=== PATIENT | female | born 1980 | race Two or more races ===

== ENCOUNTER 2017-04-29 23:31 | Emergency (ER) | payer MEDICAID ==
[~2017-04-29] VITALS: Ht 152.4 cm; Wt 61.2 kg
[2017-04-30] MEDS ORDERED: Mylanta II UD 30ml ORAL ONE
[2017-04-30 00:32] LABS: BASOPHILS % (AUTO) 0.8 % (0.0-2.0); EOSINOPHILS % (AUTO) 2.1 % (0.0-3.0); LYMPHOCYTES % (AUTO) 34.5 % (20.0-45.0); MEAN CORPUSCULAR HEMOGLOBIN 32.3 PG (27.0-31.0); MEAN CORPUSCULAR HGB CONC 34.9 G/DL (32.0-36.0); MEAN CORPUSCULAR VOLUME 93 FL (80-99); MEAN PLATELET VOLUME 8.9 FL (6.5-10.1); MONOCYTES % (AUTO) 8.4 % (1.0-10.0); NEUTROPHILS % (AUTO) 54.2 % (45.0-75.0); PLATELET COUNT 215 K/UL (150-450); RED BLOOD COUNT 4.56 M/UL (4.20-5.40); RED CELL DISTRIBUTION WIDTH 10.9 % (11.6-14.8); WHITE BLOOD COUNT 8.7 K/UL (4.8-10.8)
[2017-04-30 00:33] LABS: APPEARANCE,URINE CLEAR; KETONES,URINE NEGATIVE (NEGATIVE); LEUKOCYTE ESTERASE ,URINE 1+ (NEGATIVE); NITRITE,URINE NEGATIVE (NEGATIVE); PH,URINE 5 (4.5-8.0); PROTEIN,URINE NEGATIVE (NEGATIVE); UROBILINOGEN,URINE NORMAL MG/DL (0.0-1.0)
[2017-04-30 00:42] LABS: WBC,URINE 0-2 /HPF (0 - 2)
[2017-04-30 00:43] LABS: BACTERIA,URINE FEW /HPF; CALCIUM OXALATE CRYSTALS,UR MANY /LPF; SQUAMOUS EPITHELIAL CELL,UR MODERATE /LPF (NONE/OCC)
[2017-04-30 00:49] LABS: ALBUMIN/GLOBULIN RATIO 1.5 (1.0-2.7); ANION GAP 12 (5-15); CALCIUM 9.2 mg/dL (8.6-10.2); CARBON DIOXIDE 27 mEQ/L (20-30); CHLORIDE 99 mEQ/L (98-107); CREATININE 0.7 mg/dL (0.5-0.9); GLOMERULAR FILTRATION RATE > 60 mL/min (>60); HEMOLYSIS 24; LIPASE 31 U/L (< 60); POTASSIUM 3.8 mEQ/L (3.4-4.9); SODIUM 138 mEQ/L (135-145); TOTAL PROTEIN 7.5 g/dL (6.6-8.7)
[2017-04-30 01:00] LABS: ALANINE AMINOTRANSFERASE 5 U/L (3-33); ASPARTATE AMINO TRANSFERASE < 5 U/L (5-40)
--- NOTE | 2017-04-30 01:10 | Emergency Room Report ---
History of Present Illness General Chief Complaint: Abdominal Pain Source: Patient Present Illness HPI Is a 36-year-old female with no past medical history. She presents with lower abdominal pain for a week. No dysuria frequency. No hematuria. Pain is crampy in nature. No radiation. No nausea or vomiting Allergies: Coded Allergies: No Known Allergies (Unverified , 04/29/17) Patient History Past Medical History: see triage record, old chart reviewed Past Surgical History: none Pertinent Family History: none Social History: Denies: smoking Last Menstrual Period: April 08 Now: No Immunizations: other Reviewed Nursing Documentation: PMH: Agreed, PSxH: Agreed Nursing Documentation-PMH Past Medical History: No Stated History Review of Systems Eye: Denies: blurred vision, eye pain ENT: Denies: ear pain, nose congestion, throat swelling Respiratory: Denies: cough, shortness of breath Cardiovascular: Denies: chest pain, palpitations Gastrointestinal: Reports: abdominal pain, Denies: diarrhea, nausea, vomiting Musculoskeletal: Denies: back pain, joint pain Skin: Denies: rash Neurological: Denies: headache, numbness Endocrine: Denies: increased thirst, increased urine Hematologic/Lymphatic: Denies: easy bruising All Other Systems: negative except mentioned in HPI Physical Exam Vital Signs Date Time Temp Pulse Resp B/P Pulse Ox O2 Delivery O2 Flow Rate FiO2 04/29/17 23:38 98.2 69 14 145/87 100 Room Air vitals unremarkable Sp02 EP Interpretation: reviewed, normal General Appearance: well appearing, no apparent distress, alert Head: normocephalic, atraumatic Eyes: bilateral eye EOMI, bilateral eye PERRL ENT: hearing grossly normal, normal pharynx Neck: full range of motion, supple, no meningismus Respiratory: chest non-tender, lungs clear, normal breath sounds Cardiovascular #1: regular rate, rhythm, no murmur Gastrointestinal: normal bowel sounds, no mass, no organomegaly, no bruit, non- distended, tenderness - Mild lower quadrant tenderness Musculoskeletal: back normal, gait/station normal, normal range of motion Psychiatric: mood/affect normal Skin: warm/dry Medical Decision Making Last Vital Signs Date Time Temp Pulse Resp B/P Pulse Ox O2 Delivery O2 Flow Rate FiO2 04/29/17 23:38 98.2 69 14 145/87 100 Room Air Referrals: NOT CHOSEN IPA/MD,REFERRING (PCP) RADHIKA CHAMBERS M.D. Apr 30, 2017 01:10
[2017-04-30] MEDS ORDERED: IBUPROFEN600 MG ORAL (01:12)
[2017-04-30 01:14] VITALS: BP 133/87
== END 2017-04-30 01:14 | disposition home or self-care (01) ==
LOC: EMR 23:55
DX: R10.30 Lower abdominal pain, unspecified (principal)
CPT/HCPCS: 36415; 80053; 81003; 81025; 83690; 85025; 96374; 96375; 99284; J2405

== ENCOUNTER 2018-02-05 11:32 | Emergency (ER) | payer MEDICAID ==
[~2018-02-05] VITALS: Ht 160 cm; Wt 63.0 kg
[~2018-02-05 11:32] MED LIST: IBUPROFEN600 MG ORAL
[2018-02-05] MEDS ORDERED: NKM (11:50)
[2018-02-05 11:51] VITALS: BP 124/84
[2018-02-05] MEDS ORDERED: Ketorolac 60mg Inj IM ONE (12:15)
--- NOTE | 2018-02-05 12:39 | Emergency Room Report ---
History of Present Illness General Chief Complaint: Skin Rash/Abscess Source: Patient Present Illness HPI 5/10 in severity abdominal pain to the right side right upper quadrant radiating towards the back flank for over a week. pt. States that she feels swelling in the right upper abdomen area. She denies nausea, vomiting, fevers or chills she reports previous urinary frequency she denies dysuria, hematuria or urgency. She denies . Denies CP, Palpitations, LOC, AMS, dizziness , Changes in Vision, Sensation, paresthesias, or a sudden severe headache. Allergies: Coded Allergies: No Known Allergies (Unverified , 04/29/17) Patient History Past Medical History: see triage record Past Surgical History: none Pertinent Family History: none Now: No Reviewed Nursing Documentation: PMH: Agreed; PSxH: Agreed Nursing Documentation-PMH Past Medical History: No Stated History Review of Systems All Other Systems: negative except mentioned in HPI Physical Exam Vital Signs Date Time Temp Pulse Resp B/P (MAP) Pulse Ox O2 Delivery O2 Flow Rate FiO2 02/05/18 11:41 98.4 74 18 119/76 95 Room Air 98.4 Medical Decision Making PA Attestation Dr. Kiran is my supervising Physician whom patient management has been discussed with. Diagnostic Impression: Primary Impression: Right ovarian cyst Additional Impression: Abdominal pain Qualified Codes: R10.11 - Right upper quadrant pain ER Course 5/10 in severity abdominal pain to the right side right upper quadrant radiating towards the back flank for over a week. pt. States that she feels swelling in the right upper abdomen area. She denies nausea, vomiting, fevers or chills she reports previous urinary frequency she denies dysuria, hematuria or urgency. She denies . Denies CP, Palpitations, LOC, AMS, dizziness , Changes in Vision, Sensation, paresthesias, or a sudden severe headache. Ddx considered but are not limited to Diverticulitis, acute appy, diarrhea,UC, PUD, GE, pancreatitis, gallstone Vital signs: are WNL, pt. is afebrile H&PE are most consistent with Hypovolemia and diarrhea ORDERS: CBC, CMP, lipase, UA -Abdominal US: "unremarkable no gallstones, no hydro " -Per official radiology report- Please see report for specific details. ED INTERVENTIONS: - - Toradol IM DISCHARGE: At this time pt. is stable for d/c to home. Will provide printed patient care instructions, and any necessary prescriptions. Care plan and follow up instructions have been discussed with the patient prior to discharge. Labs Test 02/05/18 12:30 White Blood Count 9.7 K/UL (4.8-10.8) Red Blood Count 4.45 M/UL (4.20-5.40) Hemoglobin 13.8 G/DL (12.0-16.0) Hematocrit 40.7 % (37.0-47.0) Mean Corpuscular Volume 91 FL (80-99) Mean Corpuscular Hemoglobin 31.1 PG (27.0-31.0) Mean Corpuscular Hemoglobin Concent 34.0 G/DL (32.0-36.0) Red Cell Distribution Width 11.2 % (11.6-14.8) Platelet Count 243 K/UL (150-450) Mean Platelet Volume 9.4 FL (6.5-10.1) Neutrophils (%) (Auto) 65.8 % (45.0-75.0) Lymphocytes (%) (Auto) 23.8 % (20.0-45.0) Monocytes (%) (Auto) 8.4 % (1.0-10.0) Eosinophils (%) (Auto) 1.1 % (0.0-3.0) Basophils (%) (Auto) 0.9 % (0.0-2.0) Urine Color Pale yellow Urine Appearance Slightly cloudy Urine pH 6.5 (4.5-8.0) Urine Specific [place] 1.020 (1.005-1.035) Urine Protein Negative (NEGATIVE) Urine Glucose (UA) Negative (NEGATIVE) Urine Ketones Negative (NEGATIVE) Urine Occult Blood 2+ (NEGATIVE) Urine Nitrite Negative (NEGATIVE) Urine Bilirubin Negative (NEGATIVE) Urine Urobilinogen Normal MG/DL (0.0-1.0) Urine Leukocyte Esterase 1+ (NEGATIVE) Urine RBC 2-4 /HPF (0 - 2) Urine WBC 2-4 /HPF (0 - 2) Urine Squamous Epithelial Cells Moderate /LPF (NONE/OCC) Urine Amorphous Sediment Few /LPF (NONE) Urine Bacteria Few /HPF (NONE) Urine HCG, Qualitative Negative (NEGATIVE) Sodium Level 140 MMOL/L (136-145) Potassium Level 3.7 MMOL/L (3.5-5.1) Chloride Level 103 MMOL/L (98-107) Carbon Dioxide Level 32 MMOL/L (21-32) Anion Gap 5 mmol/L (5-15) Blood Urea Nitrogen 13 mg/dL (7-18) Creatinine 0.8 MG/DL (0.55-1.30) Estimat Glomerular Filtration Rate > 60 mL/min (>60) Glucose Level 98 MG/DL (74-106) Calcium Level 9.1 MG/DL (8.5-10.1) Total Bilirubin 0.3 MG/DL (0.2-1.0) Aspartate Amino Transf (AST/SGOT) 16 U/L (15-37) Alanine Aminotransferase (ALT/SGPT) 48 U/L (12-78) Alkaline Phosphatase 84 U/L (46-116) Total Protein 8.0 G/DL (6.4-8.2) Albumin 4.2 G/DL (3.4-5.0) Globulin 3.8 g/dL Albumin/Globulin Ratio 1.1 (1.0-2.7) Lipase 112 U/L (73-393) CT/MRI/US Diagnostic Results CT/MRI/US Diagnostic Results : Impression " 2.2 cm right ovarian follicular cyst normal color and Doppler flow to the right ovary appendix not visualized, contracted gallbladder, negative sonographic Yarbrough sign, questionable mild hepatic steatosis no evidence of hydronephrosis or sonographically appreciable renal stone."Per official radiology report- Please see report for specific details. Last Vital Signs Date Time Temp Pulse Resp B/P (MAP) Pulse Ox O2 Delivery O2 Flow Rate FiO2 02/05/18 11:41 98.4 74 18 119/76 95 Room Air 98.4 Disposition: HOME, SELF-CARE Condition: Stable Scripts Ibuprofen* (MOTRIN*) 600 Mg Tablet 600 MG ORAL THREE TIMES A DAY, #20 TAB 0 Refills Prov: Elle Henderson 02/05/18 Referrals: NOT CHOSEN IPA/,REFERRING (PCP) Patient Instructions: Abdominal Pain, Adult, [id number], Ovarian Cyst Additional Instructions: Take medications as directed. Follow up with a Primary Care Provider in 3-5 days, even if your symptoms have resolved. --Please review list of primary care clinics, if you do not already have a primary care provider Return sooner to ED if new symptoms occur, or current symptoms become worse. Do not drink alcohol, drive, or operate heavy machinery while taking [place] as this may cause drowsiness. - Please note that this Emergency Department Report was dictated using [employer] pou[employer] technology software, occasionally this can lead to erroneous entry secondary to interpretation by the dictation equipment. Elle Henderson February 05, 2018 12:39
[2018-02-05 13:09] LABS: BASOPHILS % (AUTO) 0.9 % (0.0-2.0); EOSINOPHILS % (AUTO) 1.1 % (0.0-3.0); HEMATOCRIT 40.7 % (37.0-47.0); HEMOGLOBIN 13.8 G/DL (12.0-16.0); LYMPHOCYTES % (AUTO) 23.8 % (20.0-45.0); MEAN CORPUSCULAR VOLUME 91 FL (80-99); MONOCYTES % (AUTO) 8.4 % (1.0-10.0); NEUTROPHILS % (AUTO) 65.8 % (45.0-75.0); PLATELET COUNT 243 K/UL (150-450); RED BLOOD COUNT 4.45 M/UL (4.20-5.40); RED CELL DISTRIBUTION WIDTH 11.2 % (11.6-14.8); WHITE BLOOD COUNT 9.7 K/UL (4.8-10.8)
[2018-02-05 13:18] LABS: APPEARANCE,URINE SLIGHTLY CLOUDY; BILIRUBIN, URINE NEGATIVE (NEGATIVE); COLOR,URINE PALE YELLOW; GLUCOSE, URINE (UA) NEGATIVE (NEGATIVE); KETONES,URINE NEGATIVE (NEGATIVE); LEUKOCYTE ESTERASE ,URINE 1+ (NEGATIVE); NITRITE,URINE NEGATIVE (NEGATIVE); PH,URINE 6.5 (4.5-8.0); PROTEIN,URINE NEGATIVE (NEGATIVE); UROBILINOGEN,URINE NORMAL MG/DL (0.0-1.0)
[2018-02-05 13:22] LABS: ANION GAP 5 mmol/L (5-15); BLOOD UREA NITROGEN 13 mg/dL (7-18); CALCIUM 9.1 MG/DL (8.5-10.1); CARBON DIOXIDE 32 MMOL/L (21-32); CHLORIDE 103 MMOL/L (98-107); CREATININE 0.8 MG/DL (0.55-1.30); POTASSIUM 3.7 MMOL/L (3.5-5.1); SODIUM 140 MMOL/L (136-145)
[2018-02-05 13:27] LABS: ALANINE AMINOTRANSFERASE 48 U/L (12-78); ALBUMIN 4.2 G/DL (3.4-5.0); ALBUMIN/GLOBULIN RATIO 1.1 (1.0-2.7); ALKALINE PHOSPHATASE 84 U/L (46-116); ASPARTATE AMINO TRANSFERASE 16 U/L (15-37); BILIRUBIN,TOTAL 0.3 MG/DL (0.2-1.0)
[2018-02-05 14:25] VITALS: BP 127/84
--- NOTE | 2018-02-05 14:58 | Diagnostic Imaging Report ---
Indication: Abdominal pain Technique: US ABD Complete Comparison: None Findings: Imaged portions of the pancreatic head are unremarkable in appearance. The body and tail not seen. Liver is normal in size with the right lobe measuring approximately 14 cm in length. Hepatic contour is smooth. There is question of mild increased hepatic echogenicity. No focal hepatic mass lesion is appreciated sonographically. There is no intrahepatic biliary ductal dilatation. The gallbladder is contracted, limiting its evaluation. It is grossly unremarkable. No definite cholelithiasis seen. No pericholecystic fluid. Common bile duct measures 4.3 mm. Kidneys are symmetric in size. They demonstrate normal echogenicity. There is no hydronephrosis or sonographically appreciable renal stone. Bladder is unremarkable in appearance. Ureteral jets are visualized. Spleen is normal in size and appearance. Portions of the aorta and IVC are normal in caliber. There is no appreciable ascites. Right lower quadrant focus scanning was performed demonstrating a 2.2 cm follicular cyst in the right ovary. Color and Doppler flow to the right ovary is documented. Appendix is not visualized. IMPRESSION: 2.2 cm right ovarian follicular cyst noted upon focus scanning in the right lower quadrant. Color and Doppler flow to the right ovary noted. Appendix not visualized Contracted gallbladder, likely related to nonfasting state. The bladder otherwise unremarkable in appearance. Sonographic Yarbrough's negative. Question mild hepatic steatosis. No evidence of hydronephrosis or sonographically appreciable renal stone.
[2018-02-05] MEDS ORDERED: IBUPROFEN600 MG ORAL (15:13)
[2018-02-05 15:46] VITALS: BP 128/82
== END 2018-02-05 15:50 | disposition home or self-care (01) ==
LOC: EMR 12:27
DX: N83.201 Unspecified ovarian cyst, right side (principal); R10.11 Right upper quadrant pain
CPT/HCPCS: 36415; 76700; 80053; 81003; 81025; 83690; 85025; 96372; 99284

== ENCOUNTER 2018-09-02 19:38 | Emergency (ER) | payer MEDICAID ==
[~2018-09-02] VITALS: Ht 147.3 cm; Wt 58.5 kg
[~2018-09-02 19:38] MED LIST changes: +NKM
[2018-09-02 20:01] VITALS: BP 123/76
--- NOTE | 2018-09-02 20:18 | Emergency Room Report ---
History of Present Illness General Chief Complaint: Back Pain-No Injury Source: Patient (Thalia Pike) Present Illness HPI 38-year-old female with no significant past medical history here complaining of 3 weeks of pain in the right upper back radiating to the right side of her body. Denies fall or injury. Reports laying down on her right side being on her phone multiple hours a day she further complains of pain in her joints in her fingers. She has brought up this pain into her primary care provider primary care provider has given her ibuprofen and also with muscle strain. She is rating the pain intermittent 5 out of 10 without radiation and without tingling or numbness. She is also concerned that her liver is in the shape however she is planning to have back and side and she is pointing to her liver. Normal pain, denies nausea vomiting, diarrhea, fevers chills, chest pain, SOB , palpitations, dysuria, hematuria, urinary frequency. She has taken ibuprofen for pain with minimal relief. She is right handed and uses her right side of body for many strenuous physical activity (Thalia Pike) Allergies: Coded Allergies: No Known Allergies (Unverified , 04/29/17) Patient History Past Medical History: see triage record Past Surgical History: none Pertinent Family History: none Last Menstrual Period: jul Now: No Immunizations: UTD Reviewed Nursing Documentation: PMH: Agreed; PSxH: Agreed (Thalia Pike) Nursing Documentation-PMH Past Medical History: No Stated History (Thalia Pike) Review of Systems All Other Systems: negative except mentioned in HPI (Thalia Pike) Physical Exam Vital Signs Date Time Temp Pulse Resp B/P (MAP) Pulse Ox O2 Delivery O2 Flow Rate FiO2 09/02/18 19:48 97.9 64 16 123/76 96 Room Air Sp02 EP Interpretation: reviewed, normal General Appearance: normal inspection, well appearing, no apparent distress, alert Head: normocephalic, atraumatic Eyes: bilateral eye normal inspection, bilateral eye PERRL ENT: normal ENT inspection, normal pharynx, no angioedema Neck: normal inspection, full range of motion, supple Respiratory: normal inspection, chest non-tender, lungs clear, normal breath sounds, no rhonchi, no respiratory distress, no wheezing Cardiovascular #1: normal inspection, regular rate, rhythm, no edema, no gallop , no murmur Gastrointestinal: normal bowel sounds, non tender, soft, no mass, no organomegaly, no guarding, no rebound Rectal: deferred Genitourinary: no CVA tenderness Musculoskeletal: digits/nails normal, gait/station normal, non-tender, other - spasm of the right upper back Neurologic: normal inspection, alert, oriented x3, responsive, handbag operator III-XII nml as tested Psychiatric: normal inspection, judgement/insight normal, memory normal Skin: normal inspection, normal color, no rash, warm/dry Lymphatic: normal inspection, no adenopathy (Thalia Pike) Medical Decision Making PA Attestation diagnosis and treatment plans are reviewed and discussed with my supervising physician Dr. Kiran (Thalia Pike) Diagnostic Impression: Primary Impression: Back spasm Additional Impressions: Muscle strain Joint pain ER Course 38-year-old female with no significant past medical history here complaining of 3 weeks of pain in the right upper back radiating to the right side of her body. Denies fall or injury. Reports laying down on her right side being on her phone multiple hours a day she further complains of pain in her joints in her fingers. She has brought up this pain into her primary care provider primary care provider has given her ibuprofen and also with muscle strain. She is rating the pain intermittent 5 out of 10 without radiation and without tingling or numbness. She is also concerned that her liver is in the shape however she is planning to have back and side and she is pointing to her liver. Normal pain, denies nausea vomiting, diarrhea, fevers chills, chest pain, SOB , palpitations, dysuria, hematuria, urinary frequency. She has taken ibuprofen for pain with minimal relief. She is right handed and uses her right side of body for many strenuous physical activity Ddx considered but are not limited to muscle strain, muscle spasm, neuropathy, arthritis Vital signs: are WNL, pt. is afebrile H&PE are most consistent with muscle spasm, muscle strain, ORDERS: naproxen ED INTERVENTIONS: None required at this time. DISCHARGE: At this time pt. is stable for d/c to home. Will provide printed patient care instructions, and any necessary prescriptions. Care plan and follow up instructions have been discussed with the patient prior to discharge. RICE guidelines given to patient (Thalia Pike) Last Vital Signs Date Time Temp Pulse Resp B/P (MAP) Pulse Ox O2 Delivery O2 Flow Rate FiO2 09/02/18 19:48 97.9 64 16 123/76 96 Room Air (Thalia Pike) Disposition: HOME, SELF-CARE Condition: Stable Scripts Naproxen* (NAPROXEN*) 500 Mg Tablet 500 MG ORAL TWICE A WEEK, #30 TAB 0 Refills Prov: Thalia Pike 09/02/18 Referrals: NON PHYSICIAN (PCP) Patient Instructions: Back Pain, Adult, Joint Pain, [id number], Muscle Strain , [id number] Additional Instructions: follow with the primary care provider, physical therapy and place, no indication for doing general workup of the liver kidneys diabetes cholesterol as primary care should take care of does unless patient is being symptomatic which at this time patient has no symptoms no nausea vomiting no diarrhea no abdominal pain no abnormal vital signs Thalia Pike Sep 02, 2018 20:18 Uche Kiran MD Sep 03, 2018 03:09
[2018-09-02] MEDS ORDERED: NAPROXEN500 M2 ORAL (20:19)
[2018-09-02 20:26] VITALS: BP 118/72
== END 2018-09-02 20:25 | disposition home or self-care (01) ==
LOC: EMR 20:11
DX: M62.830 Muscle spasm of back (principal); M25.50 Pain in unspecified joint; T14.8XXA Other injury of unspecified body region, initial encounter; X58.XXXA Exposure to other specified factors, initial encounter; Y92.9 Unspecified place or not applicable
CPT/HCPCS: 99282

== ENCOUNTER 2018-10-17 20:42 | Emergency (ER) | payer MEDICAID ==
[~2018-10-17] VITALS: Ht 162.6 cm; Wt 55.8 kg
[~2018-10-17 20:42] MED LIST changes: +NAPROXEN500 M2 ORAL
--- NOTE | 2018-10-17 21:13 | NUR ---
ED Nurse Note: pt walked in c/o neck pain and swelling, abd pain and rectal pain x 3 wks, pt reports when she has bm it hurts more after. pt denies diarrhea or constipation, denies blood in bm. pt states she doens't know if she had hemorroids or not. abd soft nondistended active bs, airway intact, resp even and unlabored, will cont monitor.
[2018-10-17] MEDS ORDERED: Bactrim-DS 1 tab ORAL ONE (21:30)
[2018-10-17 21:35] LABS: APPEARANCE,URINE CLEAR; BILIRUBIN, URINE NEGATIVE (NEGATIVE); COLOR,URINE PALE YELLOW; GLUCOSE, URINE (UA) NEGATIVE (NEGATIVE); KETONES,URINE NEGATIVE (NEGATIVE); LEUKOCYTE ESTERASE ,URINE 1+ (NEGATIVE); NITRITE,URINE NEGATIVE (NEGATIVE); PH,URINE 7 (4.5-8.0); PROTEIN,URINE NEGATIVE (NEGATIVE); UROBILINOGEN,URINE NORMAL MG/DL (0.0-1.0)
--- NOTE | 2018-10-17 22:27 | Emergency Room Report ---
History of Present Illness General Chief Complaint: Sore Throat Source: Patient Present Illness HPI Patient presents with 2 problems. One is that she has pain on the outside of her trachea on the left-hand side. There is a bump there. She denies any trauma. She's not noticed any fever. She's tried taking Motrin. This is been present for several days. She has had this problem once before but it resolved on its own. No medications were taken. The second problem is that she has some lower abdominal pain associated with straining with her stools. She denies any vomiting or diarrhea. She states she has pain in her rectum. There is no rash. She rates the pain 9/10 and aching and pressure without radiation. However there is some suprapubic tenderness and fullness. There is no blood in the stool. On amox for pulled tooth. Has 5 more tablets to go. She is never been evaluated for the problem in her neck or abdomen. She denies diabetes, hypertension, abdominal problems in the past. Allergies: Coded Allergies: No Known Allergies (Unverified , 04/29/17) Patient History Past Medical History: see triage record Social History: Denies: smoking Social History Narrative At home Last Menstrual Period: 09/18/18 Now: No : 0 Reviewed Nursing Documentation: PMH: Agreed; PSxH: Agreed Nursing Documentation-PMH Past Medical History: No Stated History Review of Systems All Other Systems: negative except mentioned in HPI Physical Exam Vital Signs Date Time Temp Pulse Resp B/P (MAP) Pulse Ox O2 Delivery O2 Flow Rate FiO2 10/17/18 20:57 98.1 68 17 123/77 98 Room Air Sp02 EP Interpretation: reviewed, normal General Appearance: well appearing, no apparent distress, GCS 15 Head: normocephalic Eyes: bilateral eye normal inspection, bilateral eye PERRL ENT: moist mucus membranes Neck: full range of motion, supple, thyroid normal, tender - Lymph node left anterior Respiratory: lungs clear, normal breath sounds Cardiovascular #1: regular rate, rhythm Cardiovascular #2: 2+ radial (R) Gastrointestinal: normal inspection, normal bowel sounds, soft, no mass, non- distended, no guarding, no rebound, tenderness - Minimal suprapubic and left lower quadrant Genitourinary: no CVA tenderness Musculoskeletal: back normal, gait/station normal, normal range of motion Neurologic: alert, oriented x3, grossly normal Psychiatric: mood/affect normal Skin: normal inspection, warm/dry, other - Moles anterior neck Medical Decision Making Diagnostic Impression: Primary Impression: Lymphadenitis Additional Impressions: Constipated Qualified Codes: K59.00 - Constipation, unspecified Abdominal pain Qualified Codes: R10.30 - Lower abdominal pain, unspecified ER Course Patient presents with 2 problems. She has had painful swelling area in the left anterior neck. Differential includes lymphadenitis, cellulitis, strain amongst others. There is a tender lymph node in that area. This is just lymphadenitis. In addition she complains about abdominal pain. Differential includes diverticulitis, constipation, UTI amongst others. Evaluation will be with urinalysis and x-ray. Urinalysis without evidence of infection. negative. Abdominal films with increased stool load. Patient had been treated here and pain is resolved. She is given Bactrim for the possible lymphadenitis in her neck and advised to stop amoxicillin. Discussed results of x-ray and urinalysis. Patient is improved and stable for outpatient observation and treatment. Patient was advised to return if the pain increased or if she was not doing well. In addition she was told she needed to follow-up with her private physician. Laboratory Tests Test 10/17/18 21:17 Urine Color Pale yellow Urine Appearance Clear Urine pH 7 (4.5-8.0) Urine Specific [place] 1.010 (1.005-1.035) Urine Protein Negative (NEGATIVE) Urine Glucose (UA) Negative (NEGATIVE) Urine Ketones Negative (NEGATIVE) Urine Blood 2+ (NEGATIVE) H Urine Nitrite Negative (NEGATIVE) Urine Bilirubin Negative (NEGATIVE) Urine Urobilinogen Normal MG/DL (0.0-1.0) Urine Leukocyte Esterase 1+ (NEGATIVE) H Urine RBC 2-4 /HPF (0 - 2) H Urine WBC 0-2 /HPF (0 - 2) Urine Squamous Epithelial Cells Few /LPF (NONE/OCC) Urine Bacteria Few /HPF (NONE) Urine HCG, Qualitative Negative (NEGATIVE) Other X-Ray Diagnostic Results Other X-Ray Diagnostic Results : X-Ray ordered: Abdomen # of Views/Limited Vs Complete: 2 View Indication: Pain EP Interpretation: Yes Interpretation: nonspecific bowel gas, no sbo, other - Increased stool load Impression: Other Electronically Signed by: Electronically signed by Uche Kiran MD Last Vital Signs Date Time Temp Pulse Resp B/P (MAP) Pulse Ox O2 Delivery O2 Flow Rate FiO2 10/17/18 23:19 98.2 67 16 116/60 100 Room Air Status: improved Disposition: HOME, SELF-CARE Condition: Improved Scripts Ibuprofen* (MOTRIN*) 600 Mg Tablet 600 MG ORAL Q6H PRN for For Pain, #20 TAB Prov: Uche Kiran MD 10/17/18 Lactulose (LACTULOSE*) 20 Gm/30 Ml Solution 30 ML ORAL BID, #240 ML 0 Refills Prov: Uche Kiran MD 10/17/18 Acetaminophen (Tylenol) 325 Mg Tablet 650 MG ORAL Q6H PRN for Prn Pain/Headache/Temp > 101, #20 TAB 0 Refills Prov: Uche Kiran MD 10/17/18 Trimethoprim/Sulfamethoxazole 160/800* (BACTRIM DS TABLET*) 1 Each Tablet 1 TAB ORAL TWICE A DAY, #14 TAB Prov: Uche Kiran MD 10/17/18 Uche Kiran MD Oct 17, 2018 22:27
[2018-10-17 22:51] VITALS: BP 118/77
[2018-10-17] MEDS ORDERED: BACTRIM DS TAB1 EAC1 ORAL (23:17)
[2018-10-17] MEDS ORDERED: LACTULOSE20 GM/301 ORAL (23:17)
[2018-10-17] MEDS ORDERED: TYLENOL325 MG ORAL (23:17)
[2018-10-17 23:19] VITALS: BP 116/60
[2018-10-17] MEDS ORDERED: IBUPROFEN600 MG ORAL (23:19)
--- NOTE | 2018-10-17 23:19 | NUR ---
ED Nurse Note: pt discharge instruction provided w/ prescription, pt education done via discussion and hand out, wristband removed, pt advised to follow up with pcp or return to ed if s/s worsen or new s/s develop, pt verbalized understanding and agrees with plan.
--- NOTE | 2018-10-18 11:09 | Diagnostic Imaging Report ---
Indication: Abdominal pain Technique: Supine view of the abdomen Comparison: none Findings: Unremarkable bowel gas pattern. No unusual masses or calcifications. The bones are unremarkable Impression: Negative
[2018-10-23] MEDS ORDERED: IBUPROFEN600 MG ORAL (01:42)
[2018-10-25] MEDS ORDERED: NITROFURANTOIN100 M2 ORAL (13:52)
== END 2018-10-17 23:19 | disposition home or self-care (01) ==
LOC: EMR 21:30
DX: I88.9 Nonspecific lymphadenitis, unspecified (principal); K59.00 Constipation, unspecified; R10.30 Lower abdominal pain, unspecified
CPT/HCPCS: 74018; 81003; 81025; 99283

== ENCOUNTER 2018-10-27 20:20 | Emergency (ER) | payer MEDICAID ==
[~2018-10-27] VITALS: Ht 157.5 cm; Wt 55.8 kg
[~2018-10-27 20:20] MED LIST changes: +BACTRIM DS TAB1 EAC1 ORAL; +LACTULOSE20 GM/301 ORAL; +NITROFURANTOIN100 M2 ORAL; +TYLENOL325 MG ORAL
[2018-10-27] MEDS ORDERED: AMOXICILLIN500 M1 PO (20:34)
[2018-10-27 20:35] VITALS: BP 140/85
--- NOTE | 2018-10-27 20:35 | NUR ---
ED Nurse Note: Patient walk in c/o pressure chest pain, left sided weakness, blurry vision since yesterday at 1200. pt stating 5 /10 pain on chest that is niot radiating. seen by juan. will continue to monitor.
[2018-10-27] MEDS ORDERED: BUSPAR10 MG ORAL (21:13)
--- NOTE | 2018-10-27 21:16 | Emergency Room Report ---
History of Present Illness General Chief Complaint: Chest Pain Source: Patient Present Illness HPI This is a 38-year-old female with no past medical history. She presents with chief complaint of chest pain and left-sided numbness. She's been here multiple time for the same thing. Denies any fever chills been ongoing for last 2 days. She does complain of feeling nervous. No nausea no vomiting. No radiation. No focal deficit. Denies any other complaint. Allergies: Coded Allergies: No Known Allergies (Unverified , 04/29/17) Patient History Past Medical History: none, see triage record, old chart reviewed Past Surgical History: none Pertinent Family History: none Social History: Denies: smoking Last Menstrual Period: 09/27/2018 Now: No Immunizations: other Reviewed Nursing Documentation: PMH: Agreed; PSxH: Agreed Nursing Documentation-PMH Past Medical History: No Stated History Review of Systems Eye: Denies: eye pain, blurred vision ENT: Denies: ear pain, nose congestion, throat swelling Respiratory: Denies: cough, shortness of breath Cardiovascular: Reports: chest pain; Denies: palpitations Gastrointestinal: Denies: abdominal pain, diarrhea, nausea, vomiting Musculoskeletal: Denies: back pain, joint pain Skin: Denies: rash Neurological: Denies: headache, numbness Endocrine: Denies: increased thirst, increased urine Hematologic/Lymphatic: Denies: easy bruising All Other Systems: negative except mentioned in HPI Physical Exam Vital Signs Date Time Temp Pulse Resp B/P (MAP) Pulse Ox O2 Delivery O2 Flow Rate FiO2 10/27/18 20:28 97.3 78 16 140/85 98 Room Air vitals normal Sp02 EP Interpretation: reviewed, normal General Appearance: well appearing, no apparent distress, alert Head: normocephalic, atraumatic Eyes: bilateral eye PERRL, bilateral eye EOMI ENT: hearing grossly normal, normal pharynx Neck: full range of motion, supple, no meningismus Respiratory: chest non-tender, lungs clear, normal breath sounds Cardiovascular #1: regular rate, rhythm, no murmur Gastrointestinal: normal bowel sounds, non tender, no mass, no organomegaly, no bruit, non-distended Musculoskeletal: back normal, gait/station normal, normal range of motion Psychiatric: mood/affect normal Skin: warm/dry Medical Decision Making Diagnostic Impression: Primary Impression: Chest pain Qualified Codes: R07.9 - Chest pain, unspecified Additional Impression: Anxiety ER Course Patient presents with atypical chest pain. Most likely anxiety related. No evidence of ACS, PE, dissection to name a few. No evidence of CVA. EKG Diagnostic Results Rate: normal Rhythm: NSR ST Segments: no acute changes ASA given to the pt in ED: No Rhythm Strip Diag. Results EP Interpretation: yes Rate: 61 Rhythm: NSR, no PVC's, no ectopy Last Vital Signs Date Time Temp Pulse Resp B/P (MAP) Pulse Ox O2 Delivery O2 Flow Rate FiO2 10/27/18 20:28 97.3 78 16 140/85 98 Room Air Status: improved Disposition: HOME, SELF-CARE Condition: Stable Scripts Buspirone Hcl* (BUSPAR*) 10 Mg Tablet 10 MG ORAL THREE TIMES A DAY, #15 TAB 0 Refills Prov: Seth Skaggs MD 10/27/18 Patient Instructions: Nonspecific Chest Pain Additional Instructions: Follow up with your Dr. in 7 days. Return if symptom worsen. Seth Skaggs MD Oct 27, 2018 21:16
[2018-10-27 21:39] VITALS: BP 140/85
--- NOTE | 2018-10-27 21:39 | NUR ---
ED Nurse Note: Patient cleared for discharge per ERMD. VSS. Patient given prescriptions and discharge instructions; verbalized understanding. ID band removed. Patient ambulated steady with all personal belongings.
== END 2018-10-27 21:39 | disposition home or self-care (01) ==
LOC: EMR 21:00
DX: R07.89 Other chest pain (principal); F41.9 Anxiety disorder, unspecified
CPT/HCPCS: 93005; 99283

== ENCOUNTER 2018-10-30 20:22 | Emergency (ER) | payer MEDICAID ==
[~2018-10-30] VITALS: Ht 157.5 cm; Wt 55.8 kg
[~2018-10-30 20:22] MED LIST changes: +AMOXICILLIN500 M1 PO; +BUSPAR10 MG ORAL
[2018-10-30] MEDS ORDERED: NKM (20:30)
[2018-10-30 20:32] VITALS: BP 122/72
--- NOTE | 2018-10-30 20:36 | NUR ---
ED Nurse Note: Patient walk in c/o left side chest pain radiating to back for 3x weeks. Patient reports burning sensation. Patient reports 5/10 pain. Patient states her PCP told her she had inflamation in the neck. pt is alert and oriented times 4. pt presents with normal sinus rhythm with other virtal signs within normal limits.
[2018-10-30] MEDS ORDERED: Mylanta II UD 30ml ORAL ONE (21:00)
[2018-10-30] MEDS ORDERED: Lidocaine 2% Visc 15ml soln ORAL ONE (21:00)
[2018-10-30] MEDS ORDERED: PRILOSEC OTC20 MG ORAL (21:01)
--- NOTE | 2018-10-30 21:01 | Emergency Room Report ---
History of Present Illness General Chief Complaint: Chest Pain Source: Patient Present Illness HPI Is a 38-year-old female with no past medical history. She presents with chief complaint of left-sided chest pain. This been a chronic problem for weeks. I saw her several times for this already. She said his skin is burning in sensation. His go up her neck. No nausea no vomiting. No fever or chills. She had workup with negative EKG. Her neck pain and CT done with was negative for any issue. I tried giving her BuSpar without any relief. Denies any other complaint. Nothing made it better. Nothing made it worse. Allergies: Coded Allergies: No Known Allergies (Unverified , 04/29/17) Patient History Past Medical History: see triage record, old chart reviewed Past Surgical History: none Pertinent Family History: none Social History: Denies: smoking Last Menstrual Period: 10/28/2018 Now: No Immunizations: other Reviewed Nursing Documentation: PMH: Agreed; PSxH: Agreed Nursing Documentation-PMH Past Medical History: No Stated History Review of Systems Eye: Denies: eye pain, blurred vision ENT: Denies: ear pain, nose congestion, throat swelling Respiratory: Denies: cough, shortness of breath Cardiovascular: Reports: chest pain; Denies: palpitations Gastrointestinal: Denies: abdominal pain, diarrhea, nausea, vomiting Musculoskeletal: Denies: back pain, joint pain Skin: Denies: rash Neurological: Denies: headache, numbness Endocrine: Denies: increased thirst, increased urine Hematologic/Lymphatic: Denies: easy bruising All Other Systems: negative except mentioned in HPI Physical Exam Vital Signs Date Time Temp Pulse Resp B/P (MAP) Pulse Ox O2 Delivery O2 Flow Rate FiO2 10/30/18 20:25 98.2 76 16 122/72 96 Room Air 10/30/18 20:32 99 vitals normal Sp02 EP Interpretation: reviewed, normal General Appearance: well appearing, no apparent distress, alert Head: normocephalic, atraumatic Eyes: bilateral eye PERRL, bilateral eye EOMI ENT: hearing grossly normal, normal pharynx Neck: full range of motion, supple, no meningismus Respiratory: chest non-tender, lungs clear, normal breath sounds Cardiovascular #1: regular rate, rhythm, no murmur Gastrointestinal: normal bowel sounds, non tender, no mass, no organomegaly, no bruit, non-distended Musculoskeletal: back normal, gait/station normal, normal range of motion Neurologic: alert, oriented x3 Psychiatric: anxious Skin: warm/dry Medical Decision Making Diagnostic Impression: Primary Impression: Chest pain Qualified Codes: R07.9 - Chest pain, unspecified ER Course Patient with atypical chest pain. No cardiac issue. EKG normal. This may be anxiety related. Could be reflux. No acute process or bloodwork or admission. We'll discharge home with reassurance and follow up with primary care doctor. EKG Diagnostic Results Rate: normal Rhythm: NSR ST Segments: no acute changes Rhythm Strip Diag. Results EP Interpretation: yes Rate: 62 Rhythm: NSR, no PVC's, no ectopy Last Vital Signs Date Time Temp Pulse Resp B/P (MAP) Pulse Ox O2 Delivery O2 Flow Rate FiO2 10/30/18 20:32 98.2 71 16 122/72 96 Room Air 10/30/18 20:32 99 Status: unchanged Disposition: HOME, SELF-CARE Condition: Stable Scripts Omeprazole Magnesium (PRILOSEC OTC) 20 Mg Tablet. 20 MG ORAL DAILY, #30 TAB Prov: Seth Skaggs MD 10/30/18 Patient Instructions: Nonspecific Chest Pain Additional Instructions: Follow-up with your doctor in 7 days. Return if symptom worsen. Seth Skaggs MD Oct 30, 2018 21:01
[2018-10-30 21:07] VITALS: BP 120/74
[2018-10-30 21:08] VITALS: BP 122/72
--- NOTE | 2018-10-30 21:09 | NUR ---
ED Nurse Note: PT is DC per ERMD order. pt is alert and oriented times 4 with neuro checks within normal limits. pt is able to ambulate with no complications. pt vital signs, status, and condition is reported to ERMD prior to DC. pt is instructed to follow up with primary MD as soon as possible. pt has left with all belongings and ID band removed. pt has left with all DC paper paperwork and prescriptions and shows full understanding of paperwork and DC instructions. pt is instructed to return and report to ER if any variance in condition. pt is stable for Dc.
== END 2018-10-30 21:17 | disposition home or self-care (01) ==
LOC: EMR 21:02
DX: R07.9 Chest pain, unspecified (principal)
CPT/HCPCS: 99283

== ENCOUNTER 2019-03-10 20:50 | Emergency (ER) | payer MEDICAID ==
[~2019-03-10] VITALS: Ht 162.6 cm; Wt 59.0 kg
[~2019-03-10 20:50] MED LIST changes: +PRILOSEC OTC20 MG ORAL
--- NOTE | 2019-03-10 21:07 | Emergency Room Report ---
History of Present Illness General Chief Complaint: Abdominal Pain Source: Patient, Medical Record Present Illness HPI This is a 38-year-old female with history of anxiety. She presents with chief complaint of abdominal pain. Onset for the last 2 weeks. On and off. Pain localized to lower quadrant. Says she has nausea but no vomiting. No diarrhea. No pain with urination. Pain is 8 out of 10. Also felt dizzy. Denies any other complaint. Allergies: Coded Allergies: No Known Allergies (Unverified , 04/29/17) Patient History Past Medical History: see triage record, old chart reviewed Past Surgical History: none Pertinent Family History: none Social History: Denies: smoking Last Menstrual Period: 03-05-2019 Now: No Immunizations: other Reviewed Nursing Documentation: PMH: Agreed; PSxH: Agreed Nursing Documentation-PMH Past Medical History: No Stated History Review of Systems Eye: Denies: eye pain, blurred vision ENT: Denies: ear pain, nose congestion, throat swelling Respiratory: Denies: cough, shortness of breath Cardiovascular: Denies: chest pain, palpitations Gastrointestinal: Reports: abdominal pain, nausea; Denies: diarrhea, vomiting Musculoskeletal: Denies: back pain, joint pain Skin: Denies: rash Neurological: Denies: headache, numbness Endocrine: Denies: increased thirst, increased urine Hematologic/Lymphatic: Denies: easy bruising All Other Systems: negative except mentioned in HPI Physical Exam Vital Signs Date Time Temp Pulse Resp B/P (MAP) Pulse Ox O2 Delivery O2 Flow Rate FiO2 03/10/19 20:54 98.1 68 18 117/78 (91) 97 Room Air Vitals normal Sp02 EP Interpretation: reviewed, normal General Appearance: well appearing, no apparent distress, alert Head: normocephalic, atraumatic Eyes: bilateral eye PERRL, bilateral eye EOMI ENT: hearing grossly normal, normal pharynx Neck: full range of motion, supple, no meningismus Respiratory: chest non-tender, lungs clear, normal breath sounds Cardiovascular #1: regular rate, rhythm, no murmur Gastrointestinal: normal bowel sounds, no mass, no organomegaly, no bruit, non- distended, tenderness - Mild, lower quadrants Musculoskeletal: back normal, gait/station normal, normal range of motion Psychiatric: mood/affect normal Skin: warm/dry Medical Decision Making Diagnostic Impression: Primary Impression: Abdominal pain Qualified Codes: R10.30 - Lower abdominal pain, unspecified ER Course Patient presents with lower quadrant abdominal pain and cramp. Abdominal exam benign. CT scan negative. She does have microscopic hematuria. This may be starting of her menstrual. No evidence of an acute abdomen. Will discharge home. CT/MRI/US Diagnostic Results CT/MRI/US Diagnostic Results : Imaging Test Ordered: CT abdomen and pelvis Impression Read by radiologist. Negative. Last Vital Signs Date Time Temp Pulse Resp B/P (MAP) Pulse Ox O2 Delivery O2 Flow Rate FiO2 03/10/19 20:54 98.1 68 18 117/78 (91) 97 Room Air Status: improved Disposition: HOME, SELF-CARE Condition: Stable Scripts Ibuprofen* (MOTRIN*) 600 Mg Tablet 600 MG ORAL THREE TIMES A DAY, #30 TAB 0 Refills Prov: Seth Skaggs MD 03/10/19 Patient Instructions: Abdominal Pain, Adult Additional Instructions: Follow-up with your doctor in 7 days. Return if worse. Seth Skaggs MD Mar 10, 2019 21:07
[2019-03-10 21:15] VITALS: BP 117/80
[2019-03-10] MEDS ORDERED: Ketorolac 30mg Inj IV ONE (21:15)
--- NOTE | 2019-03-10 21:15 | NUR ---
ED Nurse Note: PT FROM HOME WITH C/O MID ABD PAIN X 2 DAYS INTERMITTENTLY AT 7/10 AND ACHING, ALSO W/ NAUSEA, NO EMESIS, DIARRHEA OR FEVERS. Pt is A&Ox4. pt resting in bed.
[2019-03-10 21:32] LABS: APPEARANCE,URINE CLEAR; BILIRUBIN, URINE NEGATIVE (NEGATIVE); COLOR,URINE PALE YELLOW; GLUCOSE, URINE (UA) NEGATIVE (NEGATIVE); KETONES,URINE NEGATIVE (NEGATIVE); LEUKOCYTE ESTERASE ,URINE NEGATIVE (NEGATIVE); NITRITE,URINE NEGATIVE (NEGATIVE); PH,URINE 5 (4.5-8.0); PROTEIN,URINE NEGATIVE (NEGATIVE); UROBILINOGEN,URINE NORMAL MG/DL (0.0-1.0)
[2019-03-10 21:36] LABS: BASOPHILS % (AUTO) 1.4 % (0.0-2.0); EOSINOPHILS % (AUTO) 3.1 % (0.0-3.0); HEMATOCRIT 35.9 % (37.0-47.0); HEMOGLOBIN 13.1 G/DL (12.0-16.0); LYMPHOCYTES % (AUTO) 37.9 % (20.0-45.0); MEAN CORPUSCULAR VOLUME 86 FL (80-99); MONOCYTES % (AUTO) 8.9 % (1.0-10.0); NEUTROPHILS % (AUTO) 48.8 % (45.0-75.0); PLATELET COUNT 235 K/UL (150-450); RED BLOOD COUNT 4.18 M/UL (4.20-5.40); RED CELL DISTRIBUTION WIDTH 10.1 % (11.6-14.8); WHITE BLOOD COUNT 7.7 K/UL (4.8-10.8)
[2019-03-10 21:42] LABS: ANION GAP 8 mmol/L (5-15); BLOOD UREA NITROGEN 15 mg/dL (7-18); CARBON DIOXIDE 28 MMOL/L (21-32); CHLORIDE 105 MMOL/L (98-107); CREATININE 0.6 MG/DL (0.55-1.30); POTASSIUM 3.9 MMOL/L (3.5-5.1); SODIUM 141 MMOL/L (136-145)
[2019-03-10 21:46] LABS: ALANINE AMINOTRANSFERASE 31 U/L (12-78); ALBUMIN 4.2 G/DL (3.4-5.0); ALBUMIN/GLOBULIN RATIO 1.4 (1.0-2.7); ALKALINE PHOSPHATASE 111 U/L (46-116); ASPARTATE AMINO TRANSFERASE 18 U/L (15-37); BILIRUBIN,TOTAL 0.2 MG/DL (0.2-1.0)
[2019-03-10] MEDS ORDERED: IBUPROFEN600 MG ORAL (22:20)
--- NOTE | 2019-03-10 22:35 | NUR ---
ER DISCHARGE NOTE: Patient is cleared to be discharged per ERMD, pt is aox4, on room air, with stable vital signs. pt was given dc and prescription instructions, pt was able to verbalize understanding, pt id band and iv site removed without complications. pt is able to ambulate with steady gait. pt took all belongings.
[2019-03-10 22:36] VITALS: BP 117/80
--- NOTE | 2019-03-11 10:39 | Diagnostic Imaging Report ---
Indication: Abdominal pain Technique: Spiral acquisitions obtained through the abdomen and pelvis. No oral contrast utilized, per emergency room physician request No IV contrast utilized, per referring physician request . Multiplanar reconstructions were generated. Total dose length product 679.68 mGycm. CTDIvol(s) 12.33 mGy. Dose reduction achieved using automated exposure control Comparison: None Findings: Normal appendix. There is an ascending colon diverticulum noted. No evidence of diverticulitis.. No small bowel distention. No free or loculated intraperitoneal gas or fluid is evident. The distal esophagus, stomach, duodenum are unremarkable. Lack of IV contrast limits assessment of the solid organs. The gallbladder is nondistended. The bile ducts are nondilated. The liver, pancreas, spleen, adrenals, kidneys are unremarkable. No retroperitoneal or mesenteric mass or adenopathy. No pelvic mass or adenopathy. Uterus and ovaries are unremarkable. The included lung bases demonstrate some of hazy groundglass opacity, likely secondary to dependent atelectatic changes. The bones are unremarkable. Impression: Essentially unremarkable exam Nonspecific hazy basilar pulmonary parenchymal changes, probably on the basis of dependent atelectatic changes This agrees with the preliminary interpretation provided overnight by [facility] service. The CT scanner at [facility] is accredited by the [employer] and the scans are performed using protocols designed to limit radiation exposure to as low as reasonably achievable to attain images of sufficient resolution adequate for diagnostic evaluation.
== END 2019-03-10 22:20 | disposition home or self-care (01) ==
LOC: EMR 21:32
DX: R10.30 Lower abdominal pain, unspecified (principal); R11.0 Nausea; R42 Dizziness and giddiness
CPT/HCPCS: 36415; 74176; 80053; 81003; 81025; 83690; 85025; 96374; 96375; 99284; J1885; J2405